=== PATIENT | male | born 1955 | race Caucasian/White ===

== ENCOUNTER → 2024-11-02 14:43 | Outpatient (REF) | payer OTHER, SELFPAY | LOC: HWRAD 14:43 | PROVIDERS: ATTENDING PHYSICIAN Family Medicine | DX: R59.1 Generalized enlarged lymph nodes (principal) | CPT/HCPCS: 76536 ==

== ENCOUNTER → 2025-01-27 11:33 | Outpatient (REF) | payer SELFPAY | LOC: HWRAD 11:33 | PROVIDERS: ATTENDING PHYSICIAN Family Medicine | DX: E78.2 Mixed hyperlipidemia (principal); Z82.49 Family history of ischemic heart disease and other diseases of the circulatory system | CPT/HCPCS: 75571 ==

== ENCOUNTER 2025-03-10 06:06 | Day surgery (SDC) | payer OTHER, SELFPAY ==
[2025-03-10] VITALS (8 sets, daily range): BP systolic 126–168; BP diastolic 69–93; BMI 30.6
[2025-03-10] MEDS: NORMOSOL-R/PLASMALYTE-A 1000 IV (10:20)
== END 2025-03-10 15:20 | disposition home or self-care (01) ==
LOC: SDS 06:06
PROVIDERS: ATTENDING PHYSICIAN Otolaryngology
DX: C82.01 Follicular lymphoma grade I, lymph nodes of head, face, and neck (principal); R59.0 Localized enlarged lymph nodes
CPT/HCPCS: 38510; 88305; 88341; 88342

== ENCOUNTER → 2025-05-05 12:48 | Outpatient (REF) | payer OTHER, SELFPAY | LOC: PET 12:48 | PROVIDERS: ATTENDING PHYSICIAN Internal Medicine Hematology & Oncology | DX: C82.90 Follicular lymphoma, unspecified, unspecified site (principal) | CPT/HCPCS: 78815; A9552 ==

== ENCOUNTER → 2025-05-12 12:21 | Outpatient (REF) | payer OTHER, SELFPAY ==
[2025-05-12 12:50] VITALS: BP 152/87; BP_SYST 72
[2025-05-12] MEDS: ANCEF 10 IV (13:03)
[2025-05-12 14:15] VITALS: BP 145/92; BP_SYST 76
[2025-05-12 14:35] VITALS: BP 128/97
== END ==
LOC: RADI 12:21
PROVIDERS: ATTENDING PHYSICIAN Internal Medicine Hematology & Oncology; FAMILY PHYSICIAN Family Medicine
DX: C82.90 Follicular lymphoma, unspecified, unspecified site (principal)
CPT/HCPCS: 36561; 76937; 77001; 99152; 99153; C1788

== ENCOUNTER → 2025-08-03 12:52 | Outpatient (REF) | payer OTHER, SELFPAY | LOC: PET 12:52 | PROVIDERS: ATTENDING PHYSICIAN Nurse Practitioner Adult Health | DX: C82.90 Follicular lymphoma, unspecified, unspecified site (principal) | CPT/HCPCS: 78815; A9552 ==